=== PATIENT | male | born 1970 | race Hispanic/Latino ===

== ENCOUNTER 2017-06-10 00:24 | Inpatient (IN) | payer MEDICARE, BC ==
[~2017-06-10] VITALS: Ht 172.7 cm; Wt 86.1 kg
[2017-06-10 01:20] LABS: BASOPHILS % (AUTO) 0.5 % (0.0-5.0); EOSINOPHILS % (AUTO) 0.2 % (0.0-8.0); HEMATOCRIT 27.9 % (42-54); LYMPHOCYTES % (AUTO) 5.3 % (21.0-51.0); MEAN CORPUSCULAR HEMOGLOBIN 32.8 pg (27.0-33.0); MEAN CORPUSCULAR VOLUME 93.7 fL (79-99); MONOCYTES % (AUTO) 6.5 % (3.0-13.0); NEUTROPHILS % (AUTO) 87.5 % (40.0-77.0); PLATELET COUNT (AUTO) 337 K/uL (130-400); RED BLOOD CELL COUNT(AUTO) 2.98 MIL/uL (4.50-6.20); RED CELL DISTRIBUTION WIDTH 15.2 % (11.0-15.5); WHITE BLOOD COUNT (AUTO) 15.2 K/uL (4.8-10.8)
[2017-06-10] MEDS ORDERED: ZOSYN 3.375GM+NS 50ML 50 ML IV ONE ×2 (01:26→14:53)
[2017-06-10] MEDS ORDERED: VANCOMYCIN 1GM+NS 250ML 500 ML IV ONE (01:26)
[2017-06-10 01:33] LABS: INR 0.95 (0.85-1.15); PARTIAL THROMBOPLASTIN TIME 35.2 SEC (26.3-35.5)
[2017-06-10 02:29] LABS: BILIRUBIN,TOTAL 0.4 mg/dL (0.2-1.0); TROPONIN I < 0.04 ng/mL (0.00-0.06)
[2017-06-10 02:30] LABS: ALANINE AMINOTRANSFERASE 16 U/L (12-78); ALBUMIN 2.7 g/dL (3.5-5.0); ASPARTATE AMINOTRANSFERASE 12 U/L (10-37); CARBON DIOXIDE 30 mmol/L (21-32); CHLORIDE 93 mmol/L (101-111); CREATINE KINASE MB 0.8 ng/mL (0.5-3.6); CREATINE KINASE, TOTAL 51 U/L (21-232); GLOMERULAR FILTR. RATE CALC 7 mL/min (>60); GLUCOSE,RANDOM 245 mg/dL (70-105); MYOGLOBIN 268 ng/mL (10-92); POTASSIUM 4.3 mmol/L (3.5-5.1); SODIUM SERUM 132 mmol/L (136-145); TOTAL PROTEIN, SERUM 8.7 g/dL (6.0-8.3); UREA NITROGEN, BLOOD 35 mg/dL (7-18)
[2017-06-10 02:34] LABS: CREATININE 8.9 mg/dL (0.5-1.5)
[2017-06-10] MEDS ORDERED: HYDROMORPHONE HCL 0.5 MG/0.5 ML ML ONE (03:09)
[2017-06-10] MEDS ORDERED: ONDANSETRON HCL MDV 20ML 2 MG/ML VIAL ONE (03:09)
[2017-06-10] MEDS ORDERED: LIDOCAINE HCL-MPF 1% 2ML VIAL IJ PRN (05:45)
[2017-06-10] MEDS ORDERED: SODIUM CHLORIDE 0.9% 10 ML VIAL IVP SCH (05:45)
[2017-06-10] MEDS ORDERED: DEXTROSE 50%-WATER 50 ML DISP.SYRIN IV PRN (05:45)
[2017-06-10] MEDS ORDERED: POTASSIUM CHLORIDE 20 MEQ ERTAB PO PRN (05:45)
[2017-06-10] MEDS ORDERED: MORPHINE SULFATE 2 MG/ML 1ML SYG IVP PRN (05:45)
[2017-06-10] MEDS ORDERED: PHARMACY COMMUNICATION MISC SCH (05:45)
[2017-06-10] MEDS ORDERED: GLUCAGON 1MG KIT 1 MG ML IM PRN (05:45)
[2017-06-10] MEDS ORDERED: POTASSIUM CHLORIDE 20MEQ/100ML 100 ML IV PRN (05:45)
[2017-06-10] MEDS ORDERED: ONDANSETRON HCL 4 MG/2 ML VIAL IVP PRN (05:45)
[2017-06-10] MEDS ORDERED: LACTULOSE 20 GM/30 ML UDCUP PO PRN (05:45)
[2017-06-10] MEDS ORDERED: ACETAMINOPHEN 325 MG TAB PO PRN ×2 (05:45)
[2017-06-10] MEDS ORDERED: NITROGLYCERIN 0.4 MG SL TAB SL PRN (05:45)
[2017-06-10] MEDS ORDERED: POTASSIUM CHLORIDE 10% ELIXIR 20 MEQ/15 ML UDCUP PO PRN (05:45)
[2017-06-10] MEDS ORDERED: MORPHINE SULFATE 4 MG/1ML SYG IVP PRN (06:30)
[2017-06-10] MEDS ORDERED: METO50TA18 PO (08:02)
[2017-06-10] MEDS ORDERED: SEVE800T7 PO (08:02)
[2017-06-10] MEDS ORDERED: AMLO10TA2 PO (08:02)
[2017-06-10 08:05] VITALS: BP 127/74
[2017-06-10 08:20] LABS: BASOPHILS % (AUTO) 0.4 % (0.0-5.0); EOSINOPHILS % (AUTO) 0.4 % (0.0-8.0); HEMATOCRIT 26.4 % (42-54); LYMPHOCYTES % (AUTO) 7.1 % (21.0-51.0); MEAN CORPUSCULAR HGB CONC 33.9 g/dL (32.0-36.0); MEAN CORPUSCULAR VOLUME 94.5 fL (79-99); MONOCYTES % (AUTO) 10.7 % (3.0-13.0); NEUTROPHILS % (AUTO) 81.4 % (40.0-77.0); PLATELET COUNT (AUTO) 327 K/uL (130-400); RED BLOOD CELL COUNT(AUTO) 2.79 MIL/uL (4.50-6.20); RED CELL DISTRIBUTION WIDTH 15.1 % (11.0-15.5); WHITE BLOOD COUNT (AUTO) 14.7 K/uL (4.8-10.8)
[2017-06-10] MEDS ORDERED: MORPHINE SULFATE 4 MG/1ML SYG ONE ×2 (08:21→14:01)
[2017-06-10 08:24] LABS: POTASSIUM 4.8 mmol/L (3.5-5.1)
[2017-06-10 08:27] LABS: CREATININE 9.8 mg/dL (0.5-1.5); HEMOGLOBIN A1C 6.5 % (4.0-6.0)
[2017-06-10] MEDS: FAMOTIDINE 20MG TAB 20 MG TAB PO SCH ×2 (09:00→21:04)
[2017-06-10] MEDS ORDERED: ACETAMINOPHEN-CODEINE 300/30MG TAB PO PRN (10:15)
[2017-06-10] MEDS ORDERED: VANCOMYCIN PROTOCOL PER PHARMACY IV PRN (10:15)
[2017-06-10] MEDS ORDERED: VANCOMYCIN 1.25 GM in SODIUM CHLORIDE 0.9% 250 ML IV SCH (10:45)
[2017-06-10] MEDS ORDERED: COMPOUND IV REFRIGERATED 1 EACH IVSOLN MISC PRN (10:45)
[2017-06-10] MEDS: ZOSYN 3.375GM+NS 50ML 50 ML IV SCH (11:00)
[2017-06-10] MEDS ORDERED: ZOSYN 3.375GM+NS 50ML 50 ML IV SCH (13:00)
[2017-06-10] MEDS: SEVELAMER HCL 800 MG TABLET PO SCH ×2 (14:00→20:51)
[2017-06-10] MEDS ORDERED: ACETAMINOPHEN-CODEINE 300/30MG TAB ONE (17:13)
[2017-06-10 18:05] VITALS: BP 140/74
[2017-06-10 19:06] VITALS: BP 155/78
[2017-06-10] MEDS: METOPROLOL TARTRATE 50 MG TAB PO SCH (20:51)
[2017-06-11] VITALS (25 sets, daily range): BP systolic 97–160; BP diastolic 57–86
[2017-06-11] MEDS: ZOSYN 3.375GM+NS 50ML 50 ML IV SCH ×2 (00:02→11:00)
[2017-06-11] MEDS: METOPROLOL TARTRATE 50 MG TAB PO SCH (04:48)
[2017-06-11 05:37] LABS: HEMATOCRIT 27.2 % (42-54); MEAN CORPUSCULAR HEMOGLOBIN 33.2 pg (27.0-33.0); MEAN CORPUSCULAR HGB CONC 34.9 g/dL (32.0-36.0); MEAN CORPUSCULAR VOLUME 95.3 fL (79-99); PLATELET COUNT (AUTO) 355 K/uL (130-400); RED BLOOD CELL COUNT(AUTO) 2.85 MIL/uL (4.50-6.20); RED CELL DISTRIBUTION WIDTH 14.9 % (11.0-15.5)
[2017-06-11] MEDS ORDERED: BUPIVACAINE/PF 0.5% 30ML VIAL ONE (05:54)
[2017-06-11] MEDS ORDERED: LIDOCAINE HCL 1% 20 ML VIAL ONE (05:54)
[2017-06-11 05:55] LABS: ALBUMIN 2.4 g/dL (3.5-5.0); BILIRUBIN,TOTAL 0.5 mg/dL (0.2-1.0); PHOSPHORUS 6.6 mg/dL (2.5-4.9); POTASSIUM 5.4 mmol/L (3.5-5.1); TOTAL PROTEIN, SERUM 8.1 g/dL (6.0-8.3)
[2017-06-11] MEDS ORDERED: LACTATED RINGERS 1000ML 1,000 ML IV ONE (06:03)
[2017-06-11 06:05] LABS: CREATININE 12.4 mg/dL (0.5-1.5)
[2017-06-11] MEDS ORDERED: SODIUM CHLORIDE 0.9% 1000ML 1,000 ML IV ONE (06:10)
[2017-06-11 06:22] LABS: BAND NEUTROPHILS % (MANUAL) 1 % (0-2); EOSINOPHILS % (MANUAL) 3 % (1-6); LYMPHOCYTES % (MANUAL) 6 % (22-44); MONOCYTES % (MANUAL) 9 % (2-9); REACTIVE LYMPHOCYTES 1 % (0-0); SEGMENTED NEUTROPHILS % 80 % (40-70)
[2017-06-11 06:23] LABS: MAN.DIFF COMMENT-IMPRESSION MANUAL DIFFERENTIAL; PLATELET MORPHOLOGY COMMENT ADEQUATE
[2017-06-11] MEDS ORDERED: LIDOCAINE PF 2% 5ML ABBOJECT ONE (06:37)
[2017-06-11] MEDS ORDERED: DEXAMETHASONE SOD PHOSPHATE 10MG/ML 1ML VIAL ONE (06:37)
[2017-06-11] MEDS ORDERED: PROPOFOL 10 MG/ML 20ML VIAL IV ONE (06:37)
[2017-06-11] MEDS ORDERED: GLYCOPYRROLATE 0.2 MG/ML 5 ML VIAL ONE (06:37)
[2017-06-11] MEDS ORDERED: ONDANSETRON HCL 4 MG/2 ML VIAL ONE (06:37)
[2017-06-11] MEDS ORDERED: MIDAZOLAM HCL 1 MG/ML 2ML VIAL ONE (06:37)
[2017-06-11] MEDS ORDERED: FENTANYL CITRATE PF 50 MCG/1 ML 2ML VIAL ONE (06:38)
[2017-06-11] MEDS ORDERED: MEPERIDINE-PF 25 MG/ML SYG ONE (07:32)
[2017-06-11] MEDS ORDERED: EPOETIN ALFA 20,000 UNIT/ML VIAL SQ SCH (08:30)
[2017-06-11] MEDS: AMLODIPINE BESYLATE 5 MG TAB PO SCH (09:00)
[2017-06-11] MEDS ORDERED: ENOXAPARIN SODIUM 30 MG/0.3 ML SQ SCH (09:00)
[2017-06-11] MEDS: SEVELAMER HCL 800 MG TABLET PO SCH ×4 (10:04→16:54)
[2017-06-11] MEDS: FAMOTIDINE 20MG TAB 20 MG TAB PO SCH (10:05)
[2017-06-11] MEDS: EPOETIN ALFA 10,000 UNIT/ML VIAL SQ SCH (10:05)
[2017-06-11] MEDS: ACETAMINOPHEN-CODEINE 300/30MG TAB PO PRN (13:40)
[2017-06-11] MEDS ORDERED: DIPH,PERTUSS(ACELL),TET VAC/PF 0.5 ML VIAL IM ONE (19:45)
[2017-06-11] MEDS ORDERED: HEPARIN SODIUM 5000UNIT/ML 1ML VIAL ONE (21:42)
[2017-06-11] MEDS ORDERED: 0.9% SODIUM CHLORIDE 250 ML IV BAG IV PRN (23:00)
[2017-06-11] MEDS ORDERED: HEPARIN SODIUM 5000UNIT/ML 1ML VIAL IJ PRN ×2 (23:00)
[2017-06-11] MEDS ORDERED: ALBUMIN (HUMAN) 25% 100 ML IV PRN (23:00)
[2017-06-11] MEDS ORDERED: SODIUM CHLORIDE 0.9% 1000ML 1,000 ML IV PRN (23:00)
[2017-06-12] MEDS: METOPROLOL TARTRATE 50 MG TAB PO SCH ×2 (00:36→08:22)
[2017-06-12] MEDS: ZOSYN 3.375GM+NS 50ML 50 ML IV SCH ×2 (00:36→11:58)
[2017-06-12] MEDS: FAMOTIDINE 20MG TAB 20 MG TAB PO SCH ×2 (00:36→08:23)
[2017-06-12 04:39] VITALS: BP 160/86
[2017-06-12 05:55] LABS: HEMATOCRIT 25.6 % (42-54); MEAN CORPUSCULAR HEMOGLOBIN 33.2 pg (27.0-33.0); MEAN CORPUSCULAR HGB CONC 35.4 g/dL (32.0-36.0); MEAN CORPUSCULAR VOLUME 93.8 fL (79-99); PLATELET COUNT (AUTO) 367 K/uL (130-400); RED BLOOD CELL COUNT(AUTO) 2.73 MIL/uL (4.50-6.20); RED CELL DISTRIBUTION WIDTH 14.8 % (11.0-15.5); WHITE BLOOD COUNT (AUTO) 12.7 K/uL (4.8-10.8)
[2017-06-12 06:12] LABS: POTASSIUM 4.8 mmol/L (3.5-5.1)
[2017-06-12 06:14] LABS: CREATININE 10.1 mg/dL (0.5-1.5)
[2017-06-12 08:00] VITALS: BP 148/77
[2017-06-12] MEDS: SEVELAMER HCL 800 MG TABLET PO SCH ×2 (08:23→11:58)
[2017-06-12] MEDS: AMLODIPINE BESYLATE 5 MG TAB PO SCH (08:23)
[2017-06-12] MEDS: EPOETIN ALFA 10,000 UNIT/ML VIAL SQ SCH (09:18)
[2017-06-12 12:00] VITALS: BP 140/72
[2017-06-12 12:20] LABS: APPEARANCE,URINE Cloudy (CLEAR); BILIRUBIN,URINE Negative (NEGATIVE); COLOR,URINE Yellow (YELLOW); GLUCOSE, URINE (UA) TRACE mg/dL (NEGATIVE); KETONES,URINE Negative (NEGATIVE); LEUKOCYTE ESTERASE ,URINE Large (NEGATIVE); NITRATE,URINE Negative (NEGATIVE); OCCULT BLOOD,URINE Small (NEGATIVE); PROTEIN,URINE 300 (NEGATIVE); UROBILINOGEN,URINE 0.2 mg/dL (0.2-1.0)
[2017-06-12 12:35] LABS: BACTERIA,URINE Moderate /HPF (None Seen); MUCUS,URINE Moderate LPF (None Seen); RBC,URINE 0-1 /HPF (0-1); WBC,URINE 51-100 /HPF (0-1)
[2017-06-12] MEDS: ACETAMINOPHEN-CODEINE 300/30MG TAB PO PRN (15:12)
[2017-06-12 16:00] VITALS: BP 136/69
[2017-06-12] MEDS ORDERED: SEVELAMER HCL 800 MG TABLET PO SCH (17:00)
== END 2017-06-12 18:44 | DRG 853 ==
LOC: EDH 00:24 → OBSVTOIN 04:20 → EDHIP 04:20 → 4BH 17:40
PROVIDERS: ADMIT Internal Medicine; ATTEND Internal Medicine
PROC: 0J9Q0ZZ Drainage of Right Foot Subcutaneous Tissue and Fascia, Open Approach (ICD-10-PCS; 2017-06-11)
PROC: 0JBQ0ZZ Excision of Right Foot Subcutaneous Tissue and Fascia, Open Approach (ICD-10-PCS; 2017-06-11)
PROC: 5A1D70Z Performance of Urinary Filtration, Intermittent, Less than 6 Hours Per Day (ICD-10-PCS; 2017-06-11)
PROC: 3E0234Z Introduction of Serum, Toxoid and Vaccine into Muscle, Percutaneous Approach (ICD-10-PCS; principal; 2017-06-11 06:30)
DX: A41.9 Sepsis, unspecified organism (principal); N18.6 End stage renal disease; E11.22 Type 2 diabetes mellitus with diabetic chronic kidney disease; E11.621 Type 2 diabetes mellitus with foot ulcer; I12.0 Hypertensive chronic kidney disease with stage 5 chronic kidney disease or end stage renal disease; L03.115 Cellulitis of right lower limb; L02.611 Cutaneous abscess of right foot; M86.9 Osteomyelitis, unspecified; D63.8 Anemia in other chronic diseases classified elsewhere; E11.65 Type 2 diabetes mellitus with hyperglycemia; E11.69 Type 2 diabetes mellitus with other specified complication; I99.9 Unspecified disorder of circulatory system; L97.519 Non-pressure chronic ulcer of other part of right foot with unspecified severity; Z82.49 Family history of ischemic heart disease and other diseases of the circulatory system; Z99.2 Dependence on renal dialysis; Z23 Encounter for immunization
CPT/HCPCS: 36415; 71045; 73630; 73718; 80048; 80053; 81001; 82550; 82553; 83036; 83605; 83874; 84100; 84484; 85025; 85027; 85610; 85651; 85730; 86140; 87040; 87070; 87076; 87077; 87088; 87186; 90715; 90935; J0885; J1100; J1170; J1644; J1650; J2001; J2175; J2250; J2270; J2405; J2543; J2704; J3010; J3370; J3490; J7030; J7120